=== PATIENT | female | born 1970 | race Caucasian/White ===

== ENCOUNTER 2022-11-19 08:47 | Outpatient (CLI) | payer OTHER, MEDICAID ==
[2022-11-19] MEDS ORDERED: Magnevist 469MG/ML 20 ML VIAL ONE (09:02)
== END 2022-11-19 08:48 | disposition home or self-care (01) ==
LOC: CSHMRI 08:47
PROVIDERS: ATTEND Internal Medicine Gastroenterology
DX: K50.80 Crohn's disease of both small and large intestine without complications (principal); K21.9 Gastro-esophageal reflux disease without esophagitis; R16.1 Splenomegaly, not elsewhere classified; D50.0 Iron deficiency anemia secondary to blood loss (chronic); K74.60 Unspecified cirrhosis of liver; R16.2 Hepatomegaly with splenomegaly, not elsewhere classified; K76.0 Fatty (change of) liver, not elsewhere classified; I86.4 Gastric varices; R59.0 Localized enlarged lymph nodes
CPT/HCPCS: 74183